=== PATIENT | female | born 1955 | race Caucasian/White ===

== ENCOUNTER → 2020-09-20 | Outpatient (CLI) | payer OTHER, MEDICARE | LOC: RAD 10:30 | PROVIDERS: ATTEND Hospitalist | DX: T85.691A Other mechanical complication of intraperitoneal dialysis catheter, initial encounter (principal) ==

== ENCOUNTER → 2020-12-19 | Outpatient (CLI) | payer OTHER, MEDICARE | LOC: RAD 16:57 | PROVIDERS: ATTEND Hospitalist | DX: K59.00 Constipation, unspecified (principal); T85.691A Other mechanical complication of intraperitoneal dialysis catheter, initial encounter ==

== ENCOUNTER → 2021-05-11 | Outpatient (CLI) | payer OTHER, MEDICARE | LOC: RAD 13:46 | PROVIDERS: ATTEND Hospitalist | DX: J90 Pleural effusion, not elsewhere classified (principal); R06.02 Shortness of breath; Z99.2 Dependence on renal dialysis ==

== ENCOUNTER → 2021-10-18 | Outpatient (CLI) | payer OTHER, MEDICARE | LOC: RAD 15:03 | PROVIDERS: ATTEND Hospitalist | DX: R05.8 Other specified cough (principal) ==